=== PATIENT | female | born 1935 | race Caucasian/White ===

== ENCOUNTER 2019-04-09 12:00 | Observation (INO) ==
[2019-04-09 14:14] LABS: Basophils % 0.5 %; Eosinophils # 0.1 K/mcL (0.0-0.6); Eosinophils % 1.6 %; Hematocrit 44.6 % (35.3-44.9); Hemoglobin 13.5 g/dL (11.5-15.4); Immature Granulocytes % 0.6 % (0-4); Lymphocytes # 1.2 K/mcL (0.6-4.6); Mean Corpuscular HGB Conc 30.3 g/dL (31.6-35.5); Mean Corpuscular Hemoglobin 28.5 pg (28.0-33.3); Mean Corpuscular Volume 94.1 fL (83.0-100.0); Mean Platelet Volume 10.6 fL (9.4-12.4); Monocytes # 0.7 K/mcL (0.0-1.3); Monocytes % 8.1 %; Neutrophils # 6.4 K/mcL (1.6-8.9); Platelet Count 246 K/mcL (140-400); Red Blood Count 4.74 M/mcL (3.82-4.97); Red Cell Distribution Width 14.3 % (11.5-14.5); Segmented Neutrophils % 75.2 %; White Blood Count 8.6 K/mcL (4.3-11.1)
[2019-04-09 14:35] LABS: BUN/Creatinine Ratio 23 (6-26); Blood Urea Nitrogen 17 mg/dL (8-23); Calcium 8.9 mg/dL (8.6-10.3); Carbon Dioxide 28 mEq/L (23-29); Chloride 106 mEq/L (98-107); Glucose 116 mg/dL (70-105); Osmolality,Calculated 291 (280-300); Potassium 3.9 mEq/L (3.5-5.1); Sodium 139 mEq/L (136-145); eGFR For African Americans > 60 (> 60); eGFR For Non-African Americans > 60 (> 60)
[2019-04-09 14:36] LABS: Troponin I < 0.03 ng/mL (< 0.04)
[2019-04-09] MEDS ORDERED: Ondansetron 4 MG/2 ML VIAL IVP PRN (15:40)
[2019-04-09 16:20] LABS: Bilirubin,Urine Small (Negative); Blood,Urine Negative (Negative); Clarity,Urine Clear (Clear); Color,Urine Yellow (Yellow); Glucose,Urine (UA) Normal (Normal); Ketones,Urine Trace mg/dL (Negative); Leukocyte Esterase,Urine Negative (Negative); Nitrite,Urine Negative (Negative); Protein,Urine Negative (Neg-Trace); Specific Gravity,Urine 1.025 (1.010-1.025); Urobilinogen,Urine Normal (Normal)
[2019-04-10] MEDS: *HR* Heparin 5,000 UNIT/ML VIAL SQ SCH ×3 (00:45→17:12)
[2019-04-10] MEDS: *HR* Metformin 500 MG TABLET PO SCH (17:11)
[2019-04-10] MEDS: Carbidopa/Levodopa ER 50/200 TABLET PO SCH (20:08)
[2019-04-11] MEDS: *HR* Heparin 5,000 UNIT/ML VIAL SQ SCH ×2 (06:47→17:08)
[2019-04-11] MEDS: Aspirin Enteric Coated 81 MG Tablet PO SCH (08:16)
[2019-04-11] MEDS: Carbidopa/Levodopa ER 50/200 TABLET PO SCH ×2 (08:16→22:02)
[2019-04-11] MEDS: Gabapentin 300 MG CAPSULE PO SCH (08:16)
[2019-04-11] MEDS: *HR* Metformin 500 MG TABLET PO SCH ×2 (08:17→17:08)
[2019-04-12] MEDS: *HR* Heparin 5,000 UNIT/ML VIAL SQ SCH ×2 (05:32→17:16)
[2019-04-12] MEDS: Carbidopa/Levodopa ER 50/200 TABLET PO SCH ×2 (08:58→20:54)
[2019-04-12] MEDS: *HR* Metformin 500 MG TABLET PO SCH ×2 (08:58→17:16)
[2019-04-12] MEDS: Aspirin Enteric Coated 81 MG Tablet PO SCH (08:59)
[2019-04-12] MEDS: Gabapentin 300 MG CAPSULE PO SCH (08:59)
[2019-04-13] MEDS: *HR* Heparin 5,000 UNIT/ML VIAL SQ SCH (05:26)
[2019-04-13] MEDS: Aspirin Enteric Coated 81 MG Tablet PO SCH (09:18)
[2019-04-13] MEDS: *HR* Metformin 500 MG TABLET PO SCH (09:18)
[2019-04-13] MEDS: Gabapentin 300 MG CAPSULE PO SCH (09:18)
[2019-04-13] MEDS: Carbidopa/Levodopa ER 50/200 TABLET PO SCH (09:18)
[2019-04-13 15:06] VITALS: BP 136/71
== END 2019-04-13 16:16 ==
LOC: SUATTDRO → EMEROOARM 12:00 → 3ANU 12:00 → SUATTDRO 17:34 → 3ANU 18:35
PROVIDERS: ADMIT Internal Medicine; ATTEND Internal Medicine

== ENCOUNTER 2020-05-14 19:37 | Inpatient (IN) ==
[2020-05-14 20:19] LABS: Hematocrit 32.2 % (35.3-44.9); Hemoglobin 9.3 g/dL (11.5-15.4); Mean Corpuscular HGB Conc 28.9 g/dL (31.6-35.5); Mean Corpuscular Hemoglobin 23.4 pg (28.0-33.3); Mean Corpuscular Volume 81.1 fL (83.0-100.0); Mean Platelet Volume 10.2 fL (9.4-12.4); Platelet Count 307 K/mcL (140-400); Red Blood Count 3.97 M/mcL (3.82-4.97); Red Cell Distribution Width 15.5 % (11.5-14.5)
[2020-05-14 20:21] LABS: BUN/Creatinine Ratio 22 (6-26); Blood Urea Nitrogen 22 mg/dL (8-23); Calcium 8.6 mg/dL (8.6-10.3); Carbon Dioxide 27 mEq/L (23-29); Chloride 108 mEq/L (98-107); Glucose 187 mg/dL (70-105); Osmolality,Calculated 300 (280-300); Potassium 4.9 mEq/L (3.5-5.1); Sodium 141 mEq/L (136-145); eGFR For African Americans > 60 (> 60); eGFR For Non-African Americans 52 (> 60)
[2020-05-14 23:29] LABS: Adenovirus Not Detected (Not Detect); Coronavirus 229E Not Detected (Not Detect); Coronavirus HKU1 Not Detected (Not Detect); Coronavirus NL63 Not Detected (Not Detect); Coronavirus OC43 Not Detected (Not Detect)
[2020-05-14 23:34] LABS: Bordetella Pertussis Not Detected (Not Detect); Chlamydophila pneumoniae Not Detected (Not Detect); Human Metapneumovirus Not Detected (Not Detect); Human Rhinovirus/Enterovirus Not Detected (Not Detect); Influenza A Subtype 2009 H1 Not Detected (Not Detect); Influenza B Not Detected (Not Detect); Mycoplasma pneumoniae Not Detected (Not Detect); Parainfluenza Virus 1 Not Detected (Not Detect); Parainfluenza Virus 2 Not Detected (Not Detect); Parainfluenza Virus 3 Not Detected (Not Detect); Parainfluenza Virus 4 Not Detected (Not Detect); Respiratory Syncytial Virus Not Detected (Not Detect); SARS-CoV-2 DETECTED (Not Detect)
[2020-05-15] MEDS ORDERED: Naloxone 0.4 MG/ML INJ IVP PRN ×3 (00:46→18:38)
[2020-05-15] MEDS ORDERED: 0.9 % Sodium Chloride 1,000 ML IVC SCH (01:00)
[2020-05-15 06:24] LABS: Hematocrit 28.7 % (35.3-44.9); Hemoglobin 8.4 g/dL (11.5-15.4); Mean Corpuscular HGB Conc 29.3 g/dL (31.6-35.5); Mean Corpuscular Hemoglobin 23.5 pg (28.0-33.3); Mean Corpuscular Volume 80.4 fL (83.0-100.0); Mean Platelet Volume 9.8 fL (9.4-12.4); Platelet Count 273 K/mcL (140-400); Red Blood Count 3.57 M/mcL (3.82-4.97); Red Cell Distribution Width 15.6 % (11.5-14.5); White Blood Count 8.5 K/mcL (4.3-11.1)
[2020-05-15 06:25] LABS: Immature Reticulocyte % 20.3 % (11.0-38.0); Retculocyte # 0.05 M/mcL (0.05-0.10); Reticulocyte % 1.4 % (1.6-2.8)
[2020-05-15 06:28] LABS: INR 1.2; Prothrombin Time 13.5 Seconds (9.4-12.1)
[2020-05-15 06:30] LABS: Activated Partial Thrombo Time 27.7 Seconds (26.0-36.0)
[2020-05-15 07:07] LABS: % Iron Saturation 5 % (15-50); BUN/Creatinine Ratio 22 (6-26); Blood Urea Nitrogen 18 mg/dL (8-23); Calcium 8.3 mg/dL (8.6-10.3); Carbon Dioxide 24 mEq/L (23-29); Chloride 110 mEq/L (98-107); Ferritin 10 ng/mL (10-120); Folate 8.5 ng/mL (3.0-16.0); Glucose 133 mg/dL (70-105); Iron 15 mcg/dL (50-170); Osmolality,Calculated 300 (280-300); Potassium 3.8 mEq/L (3.5-5.1); Sodium 143 mEq/L (136-145); Transferrin 222 mg/dL (203-362); eGFR For African Americans > 60 (> 60); eGFR For Non-African Americans > 60 (> 60)
[2020-05-15] MEDS ORDERED: Iron Sucrose Complex 200 MG in 0.9 % Sodium Chloride 100 ML IVPB ONE (07:54)
[2020-05-15] MEDS ORDERED: Famotidine 20 MG/2 ML VIAL IVP ONE (11:08)
[2020-05-15] MEDS ORDERED: Povidone-Iodine 45 ML, Sodium Chloride IRRigation 1,000 ML IR ONE (11:15)
[2020-05-15] MEDS ORDERED: TOTAL JOINT MIXTURE (100ML) INTRAART ONE (11:15)
[2020-05-15] MEDS ORDERED: *HR* Dextrose 50 % in Water (Vial) 50 ML VIAL IVP PRN ×2 (12:48→18:38)
[2020-05-15] MEDS ORDERED: Dextrose Gel 15 GM/37.5 ML TUBE PO PRN ×4 (12:48→18:38)
[2020-05-15] MEDS ORDERED: D5% in Water 1,000 ML IVC PRN ×2 (12:48→18:38)
[2020-05-15] MEDS ORDERED: Ethanol\\Acetic Acid\\Na Ace\\Ben 1,000 ML IRRIG.SOLN IR ONE (15:42)
[2020-05-15] MEDS ORDERED: Vancomycin 1,000 MG VIAL ONE (15:42)
[2020-05-15] MEDS ORDERED: Ondansetron 4 MG/2 ML VIAL ONE (15:53)
[2020-05-15] MEDS ORDERED: *HR* FentaNYL (PF) 100 MCG/2 ML VIAL ONE (15:53)
[2020-05-15] MEDS ORDERED: Lidocaine -MPF 2% 2 ML VIAL ONE (15:53)
[2020-05-15] MEDS ORDERED: Dexamethasone 4 MG/ML VIAL ONE (15:53)
[2020-05-15] MEDS ORDERED: *HR* Propofol 200 MG/20 ML VIAL IVP ONE (15:54)
[2020-05-15] MEDS ORDERED: EPHEDrine 50 MG/ML VIAL ONE (17:19)
[2020-05-15] MEDS ORDERED: Insulin LISPRO 300 UNITS/3 ML VIAL SQ SCH (18:00)
[2020-05-15] MEDS ORDERED: Ondansetron 4 MG/2 ML VIAL IVP PRN (18:38)
[2020-05-15] MEDS ORDERED: Sennosides 8.6 MG TABLET PO PRN (18:38)
[2020-05-15] MEDS ORDERED: MOM Conc 10 ML UD.LIQ PO PRN (18:38)
[2020-05-15] MEDS ORDERED: *HR* Promethazine 25 MG/ML VIAL IM PRN (18:38)
[2020-05-15] MEDS: Ringers Solution, Lactated 1,000 ML IVC SCH (19:04)
[2020-05-15] MEDS: Ascorbic Acid 500 MG TABLET PO SCH ×2 (19:36→20:39)
[2020-05-15] MEDS: Carbidopa/Levodopa ER 50/200 TABLET PO SCH ×2 (19:38→20:39)
[2020-05-15] MEDS ORDERED: Carbidopa/Levodopa ER 50/200 TABLET PO SCH (21:00)
[2020-05-15 21:35] LABS: Hematocrit 27.1 % (35.3-44.9)
[2020-05-16] MEDS: CeFAZolin 2 GM/120 ML BAG IVPB SCH ×2 (00:04→09:00)
[2020-05-16] MEDS: Insulin LISPRO 300 UNITS/3 ML VIAL SQ SCH ×5 (00:14→20:44)
[2020-05-16] MEDS: Ringers Solution, Lactated 1,000 ML IVC SCH ×2 (01:24→13:39)
[2020-05-16] MEDS ORDERED: Sennosides 8.6 MG TABLET PO SCH (09:00)
[2020-05-16] MEDS ORDERED: Gabapentin 300 MG CAPSULE PO SCH (09:00)
[2020-05-16] MEDS ORDERED: Aspirin Enteric Coated 81 MG Tablet PO SCH (09:00)
[2020-05-16] MEDS ORDERED: Cholecalciferol (D-3) 1,000 UNIT (25MCG) TABLET PO SCH (09:00)
[2020-05-16] MEDS: Multivit/Ca/Min/Fe/FA 1 TAB TABLET PO SCH (09:35)
[2020-05-16] MEDS: Cholecalciferol (D-3) 1,000 UNIT (25MCG) TABLET PO SCH (09:35)
[2020-05-16] MEDS: Ascorbic Acid 500 MG TABLET PO SCH ×3 (09:35→16:49)
[2020-05-16] MEDS: Gabapentin 300 MG CAPSULE PO SCH (09:36)
[2020-05-16] MEDS: Sennosides 8.6 MG TABLET PO SCH (09:36)
[2020-05-16] MEDS: Carbidopa/Levodopa ER 50/200 TABLET PO SCH ×2 (09:38→19:54)
[2020-05-16] MEDS: Aspirin Enteric Coated 81 MG Tablet PO SCH ×2 (16:39→16:49)
[2020-05-16] MEDS: *HR* LORazepam 2 MG/ML VIAL IVP PRN (19:00)
[2020-05-17 05:42] LABS: Basophils % 0.3 %; Immature Granulocytes % 0.3 % (0-4)
[2020-05-17 05:43] LABS: Eosinophils # 0.3 K/mcL (0.0-0.6); Eosinophils % 4.1 %; Hematocrit 20.8 % (35.3-44.9); Hemoglobin 6.1 g/dL (11.5-15.4); Lymphocytes # 1.4 K/mcL (0.6-4.6); Lymphocytes % 17.8 %; Mean Corpuscular HGB Conc 29.3 g/dL (31.6-35.5); Mean Corpuscular Hemoglobin 24.3 pg (28.0-33.3); Mean Corpuscular Volume 82.9 fL (83.0-100.0); Mean Platelet Volume 10.7 fL (9.4-12.4); Monocytes # 0.6 K/mcL (0.0-1.3); Monocytes % 8.4 %; Nucleated Red Blood Cells 0.3 /100 WBC (0); Platelet Count 199 K/mcL (140-400); Red Blood Count 2.51 M/mcL (3.82-4.97); Segmented Neutrophils % 69.1 %; White Blood Count 7.6 K/mcL (4.3-11.1)
[2020-05-17 06:00] LABS: BUN/Creatinine Ratio 28 (6-26); Blood Urea Nitrogen 23 mg/dL (8-23); Calcium 7.9 mg/dL (8.6-10.3); Carbon Dioxide 25 mEq/L (23-29); Chloride 111 mEq/L (98-107); Glucose 121 mg/dL (70-105); Magnesium 1.5 mg/dL (1.6-2.6); Osmolality,Calculated 299 (280-300); Potassium 3.8 mEq/L (3.5-5.1); Sodium 142 mEq/L (136-145); eGFR For African Americans > 60 (> 60); eGFR For Non-African Americans > 60 (> 60)
[2020-05-17 06:16] LABS: Neutrophils # 5.3 K/mcL (1.6-8.9)
[2020-05-17] MEDS: Aspirin Enteric Coated 81 MG Tablet PO SCH (09:11)
[2020-05-17] MEDS: Multivit/Ca/Min/Fe/FA 1 TAB TABLET PO SCH (09:12)
[2020-05-17] MEDS: Gabapentin 300 MG CAPSULE PO SCH (09:12)
[2020-05-17] MEDS: Sennosides 8.6 MG TABLET PO SCH (09:12)
[2020-05-17] MEDS: Ascorbic Acid 500 MG TABLET PO SCH ×2 (09:12→16:59)
[2020-05-17] MEDS: Cholecalciferol (D-3) 1,000 UNIT (25MCG) TABLET PO SCH (09:12)
[2020-05-17] MEDS: Carbidopa/Levodopa ER 50/200 TABLET PO SCH ×2 (09:13→19:25)
[2020-05-17] MEDS: Insulin LISPRO 300 UNITS/3 ML VIAL SQ SCH ×4 (09:14→22:43)
[2020-05-17 09:48] LABS: Hematocrit 21.4 % (35.3-44.9); Hemoglobin 6.3 g/dL (11.5-15.4)
[2020-05-17] MEDS ORDERED: 0.9 % Sodium Chloride 250 ML ONE (19:18)
[2020-05-17] MEDS: *HR* LORazepam 2 MG/ML VIAL IVP PRN (19:30)
[2020-05-17] MEDS ORDERED: Ipratropium 1 PUFF INHALER IH PRN (22:10)
[2020-05-18] MEDS: Calcium Gluconate 1gm/50mL 1 GM/50 ML BAG IVPB SCH
[2020-05-18 01:53] LABS: Basophils % 0.3 %; Eosinophils # 0.5 K/mcL (0.0-0.6); Eosinophils % 6.4 %; Hematocrit 24.3 % (35.3-44.9); Hemoglobin 7.4 g/dL (11.5-15.4); Immature Granulocytes % 0.5 % (0-4); Lymphocytes # 1.6 K/mcL (0.6-4.6); Lymphocytes % 20.2 %; Mean Corpuscular HGB Conc 30.5 g/dL (31.6-35.5); Mean Corpuscular Hemoglobin 25.5 pg (28.0-33.3); Mean Corpuscular Volume 83.8 fL (83.0-100.0); Monocytes # 0.7 K/mcL (0.0-1.3); Monocytes % 8.4 %; Platelet Count 205 K/mcL (140-400); Red Cell Distribution Width 17.4 % (11.5-14.5); Segmented Neutrophils % 64.2 %; White Blood Count 7.7 K/mcL (4.3-11.1)
[2020-05-18 01:58] LABS: INR 1.1; Prothrombin Time 13.2 Seconds (9.4-12.1)
[2020-05-18] MEDS ORDERED: Calcium Gluconate 1gm/50mL 1 GM/50 ML BAG IVPB SCH (02:30)
[2020-05-18 02:35] LABS: Alanine Aminotransferase < 3 Units/L (7-52); Albumin 2.5 g/dL (3.5-5.7); Albumin/Globulin Ratio 1.1 (1.1-2.2); Alkaline Phosphatase 63 Units/L (34-104); Aspartate Amino Transferase 20 Units/L (13-39); BUN/Creatinine Ratio 32 (6-26); Bilirubin,Total 0.6 mg/dL (0.3-1.0); Blood Urea Nitrogen 23 mg/dL (8-23); C-Reactive Protein 103 mg/L (Less than 10); Calcium 8.1 mg/dL (8.6-10.3); Carbon Dioxide 25 mEq/L (23-29); Chloride 110 mEq/L (98-107); Ferritin 134 ng/mL (10-120); Globulin 2.3 g/dL (2.4-3.5); Glucose 123 mg/dL (70-105); Lactate Dehydrogenase 174 Units/L (140-271); Osmolality,Calculated 295 (280-300); Phosphorous 2.3 mg/dL (2.7-4.5); Potassium 3.8 mEq/L (3.5-5.1); Sodium 140 mEq/L (136-145); Total Protein 4.8 g/dL (6.4-8.9); eGFR For African Americans > 60 (> 60); eGFR For Non-African Americans > 60 (> 60)
[2020-05-18] MEDS ORDERED: Iron Sucrose Complex 400 MG in 0.9 % Sodium Chloride 250 ML IVPB ONE (08:37)
[2020-05-18] MEDS ORDERED: Calcium Gluconate 1gm/50mL 1 GM/50 ML BAG IVPB ONE (08:38)
[2020-05-18] MEDS: Sennosides 8.6 MG TABLET PO SCH (09:18)
[2020-05-18] MEDS: Carbidopa/Levodopa ER 50/200 TABLET PO SCH ×2 (09:18→20:25)
[2020-05-18] MEDS: Multivit/Ca/Min/Fe/FA 1 TAB TABLET PO SCH (09:18)
[2020-05-18] MEDS: Ascorbic Acid 500 MG TABLET PO SCH ×2 (09:18→16:54)
[2020-05-18] MEDS: Cholecalciferol (D-3) 1,000 UNIT (25MCG) TABLET PO SCH (09:19)
[2020-05-18] MEDS: Gabapentin 300 MG CAPSULE PO SCH (09:19)
[2020-05-18] MEDS: Aspirin Enteric Coated 81 MG Tablet PO SCH (09:19)
[2020-05-18] MEDS: Insulin LISPRO 300 UNITS/3 ML VIAL SQ SCH ×4 (09:20→21:23)
[2020-05-18 15:00] LABS: Hematocrit 26.2 % (35.3-44.9)
[2020-05-18] MEDS ORDERED: QUEtiapine Fumarate 25 MG TABLET PO SCH (21:00)
[2020-05-19] MEDS: Calcium Gluconate 1gm/50mL 1 GM/50 ML BAG IVPB SCH (07:22)
[2020-05-19 07:42] VITALS: BP 133/63
[2020-05-19] MEDS: Insulin LISPRO 300 UNITS/3 ML VIAL SQ SCH (08:23)
[2020-05-19] MEDS: Gabapentin 300 MG CAPSULE PO SCH ×2 (08:24→08:45)
[2020-05-19] MEDS: Cholecalciferol (D-3) 1,000 UNIT (25MCG) TABLET PO SCH ×2 (08:24→08:46)
[2020-05-19] MEDS: Ascorbic Acid 500 MG TABLET PO SCH ×2 (08:24→08:40)
[2020-05-19] MEDS: Sennosides 8.6 MG TABLET PO SCH ×2 (08:24→08:45)
[2020-05-19] MEDS: Aspirin Enteric Coated 81 MG Tablet PO SCH ×2 (08:25→08:42)
[2020-05-19] MEDS: Carbidopa/Levodopa ER 50/200 TABLET PO SCH ×2 (08:25→08:42)
[2020-05-19] MEDS: Multivit/Ca/Min/Fe/FA 1 TAB TABLET PO SCH ×2 (08:25→08:45)
== END 2020-05-19 12:10 | DRG 521 ==
LOC: 2NENU 19:37 → EMEROOARM 19:37 → SUATTDRO 23:59 → 2NENU 05-15 00:11 → SUATTDRO 05-16 17:11
PROVIDERS: ADMIT Internal Medicine; ATTEND Internal Medicine